=== PATIENT | male | born 1985 | race African-American/Black ===

== ENCOUNTER 2017-02-10 04:41 | Emergency (ER) | payer BC ==
[2017-02-10] MEDS ORDERED: Aspirin Low Dose CHEW TAB* 81 MG PO ONE (05:04)
[2017-02-10 05:32] LABS: ABS Basophils 0 10^3/ul (0-0.2); ABS Eosinophils 0.1 10^3/ul (0-0.6); ABS Lymphocytes 1.6 10^3/ul (1.0-4.8); ABS Monocytes 0.4 10^3/ul (0-0.8); ABS Nucleated RBC 0.01 10^3/ul; Eosinophil % 2.2 % (0-6); Hematocrit 40 % (42-52); Hemoglobin 13.7 g/dl (14.0-18.0); Lymphocyte % 30.9 % (25-47); Mean Corpuscular HGB Conc 34 g/dl (31-36); Mean Corpuscular Hemoglobin 28 pg (27-31); Mean Corpuscular Volume 81 fL (80-94); Mean Platelet Volume 8 um3 (7.4-10.4); Nucleated Red Blood Cells % 0.1; Platelet Count 237 10^3/ul (150-450); Red Blood Count 4.96 10^6/ul (4.0-5.4); Red Cell Distribution Width 13 % (10.5-15); White Blood Count 5.1 10^3/ul (3.5-10.8)
[2017-02-10 05:43] LABS: INR 0.93 (0.77-1.02)
[2017-02-10 05:48] LABS: EGFR Non-African American 96.6 (>60)
--- NOTE | 2017-02-10 06:56 | ED ---
Ja Abdi Tecjoon, scribed for Yanely Bedolla MD on 02/10/17 at 0504 . HPI Chest Pain - HPI Summary HPI Summary: This patient is a 31 year old male presenting to [facility] with a chief complaint of left-sided chest pain since 329. The pain is described as a discomfort. The pain is rated 2-3/10 in severity currently but 7/10 at onset. The pain radiates down his left arm. Symptoms aggravated by nothing. Symptoms alleviated by nothing. Patient denies SOB, diaphoresis, nausea, vomiting. Patient does not smoke, but notes that he has a FHx of cardiac disease. - History of Current Complaint Chief Complaint: EDChestPainROMI Hx Obtained From: Patient Onset/Duration: Started Hours Ago Time of Onset: 03:30 Timing: Constant Initial Severity: Moderate - 7/10 Current Severity: Mild Pain Intensity: 3 Pain Scale Used: 0-10 Numeric Chest Pain Location: Left Anterior, Left Lateral Chest Pain Radiates: Yes Chest Pain Radiates To:: Arm - left Aggravating Factor(s): Nothing Alleviating Factor(s): Nothing Associated Signs and Symptoms: Positive: Negative - SOB, diaphoresis, nausea, vomiting - Allergy/Home Medications Allergies/Adverse Reactions: Allergies Allergy/AdvReac Type Severity Reaction Status Date / Time Bee Venom Allergy Anaphylatic Verified 02/10/17 04:48 Shock PMH/Surg Hx/FS Hx/Imm Hx Previously Healthy: Yes Endocrine/Hematology History: Denies: Hx Diabetes, Hx Thyroid Disease Cardiovascular History: Denies: Hx Hypertension, Hx Pacemaker/ICD Respiratory History: Denies: Hx Asthma, Hx Chronic Obstructive Pulmonary Disease (COPD) GI History: Denies: Hx Ulcer History: Denies: Hx Renal Disease Sensory History: Denies: Hx Hearing Aid Psychiatric History: Reports: Hx Anxiety Denies: Hx Panic Disorder - Immunization History Date of Influenza Vaccine: 10/2016 Infectious Disease History: Yes Infectious Disease History: Denies: Hx Hepatitis, Hx Human Immunodeficiency Virus (HIV), Traveled Outside the [place] in Last 30 Days - Family History Known Family History: Positive: Cardiac Disease, Hypertension - Social History Occupation: Employed Full-time Alcohol Use: None Hx Substance Use: No Substance Use Type: Reports: None Hx Tobacco Use: No Smoking Status (MU): Never Smoked Tobacco Have You Smoked in the Last Year: No Review of Systems Negative: Fever, Skin Diaphoresis Positive: Chest Pain Negative: Shortness Of Breath Negative: Vomiting, Nausea All Other Systems Reviewed And Are Negative: Yes Physical Exam - Summary Physical Exam Summary: VITAL SIGNS: Reviewed. GENERAL: Patient is a well-developed and nourished male who is lying comfortable in the stretcher. Patient is not in any acute respiratory distress. HEAD AND FACE: No signs of trauma. No ecchymosis, hematomas or skull depressions. No sinus tenderness. EYES: PERRLA, EOMI x 2, No injected conjunctiva, no nystagmus. EARS: Hearing grossly intact. Ear canals and tympanic membranes are within normal limits. MOUTH: Oropharynx within normal limits. NECK: Supple, trachea is midline, no adenopathy, no JVD, no carotid bruit, no c- spine tenderness, neck with full ROM. CHEST: Symmetric, no tenderness at palpation LUNGS: Clear to auscultation bilaterally. No wheezing or crackles. CVS: Regular rate and rhythm, S1 and S2 present, no murmurs or gallops appreciated. ABDOMEN: Soft, non-tender. No signs of distention. No rebound no guarding, and no masses palpated. Bowel sounds are normal. EXTREMITIES: FROM in all major joints, no edema, no cyanosis or clubbing. NEURO: Alert and oriented x 3. No acute neurological deficits. Speech is normal and follows commands. SKIN: Dry and warm Triage Information Reviewed: Yes Vital Signs On Initial Exam: Initial Vitals Temp Pulse Resp BP Pulse Ox 97.0 F 78 16 141/82 100 02/10/17 04:43 02/10/17 04:43 02/10/17 04:43 02/10/17 04:43 02/10/17 04:43 Vital Signs Reviewed: Yes Diagnostics - Vital Signs Vital Signs Temp Pulse Resp BP Pulse Ox 02/10/17 04:43 97.0 F 78 16 141/82 100 - Laboratory Lab Results: Lab Results 02/10/17 02/10/17 02/10/17 Range/Units 05:24 05:24 05:24 WBC 5.1 (3.5-10.8) 10^3/ul RBC 4.96 (4.0-5.4) 10^6/ul Hgb 13.7 L (14.0-18.0) g/dl Hct 40 L (42-52) % MCV 81 (80-94) fL MCH 28 (27-31) pg MCHC 34 (31-36) g/dl RDW 13 (10.5-15) % Plt Count 237 (150-450) 10^3/ul MPV 8 (7.4-10.4) um3 Neut % (Auto) 58.2 (38-83) % Lymph % (Auto) 30.9 (25-47) % [place] % (Auto) 8.1 (1-9) % Eos % (Auto) 2.2 (0-6) % Baso % (Auto) 0.6 (0-2) % Absolute Neuts (auto) 3.0 (1.5-7.7) 10^3/ul Absolute Lymphs (auto) 1.6 (1.0-4.8) 10^3/ul Absolute Monos (auto) 0.4 (0-0.8) 10^3/ul Absolute Eos (auto) 0.1 (0-0.6) 10^3/ul Absolute Basos (auto) 0 (0-0.2) 10^3/ul Absolute Nucleated RBC 0.01 10^3/ul Nucleated RBC % 0.1 INR (Anticoag Therapy) 0.93 (0.77-1.02) APTT 35.2 (26.0-36.3) seconds Sodium 138 (133-145) mmol/L Potassium TNP Chloride 108 (101-111) mmol/L Carbon Dioxide 24 (22-32) mmol/L Anion Gap 6 (2-11) mmol/L BUN 12 (6-24) mg/dL Creatinine 0.91 (0.67-1.17) mg/dL Est GFR ( Amer) 124.2 (>60) Est GFR (Non-Af Amer) 96.6 (>60) BUN/Creatinine Ratio 13.2 (8-20) Glucose 116 H (70-100) mg/dL Calcium 8.7 (8.6-10.3) mg/dL Total Bilirubin 0.50 (0.2-1.0) mg/dL AST TNP ALT 32 (7-52) U/L Alkaline Phosphatase 41 (34-104) U/L Total Creatine Kinase 235 H (10-223) U/L Troponin I 0.00 (<0.04) ng/mL Total Protein 6.3 L (6.4-8.9) g/dL Albumin 3.7 (3.2-5.2) g/dL Globulin 2.6 (2-4) g/dL Albumin/Globulin Ratio 1.4 (1-3) Result Diagrams: 02/10/17 05:24 02/10/17 05:24 Lab Statement: Any lab studies that have been ordered have been reviewed, and results considered in the medical decision making process. - Radiology CXR Xray Interpretation: No Acute Changes Radiology Interpretation Completed By: ED Physician, Radiologist - EKG 045 Cardiac Rate: NL EKG Rhythm: Sinus Rhythm - 70 BPM EKG Interpretation: Normal axis. Normal interval. No ischemic changes Chest Pain Course/Dx - Course Course Of Treatment: This patient is a 31 year old male presenting to [facility] with a chief complaint of left-sided chest pain since 329. The pain is rated 2- 3/10 in severity currently but 7/10 at onset. The pain radiates down his left arm. An EKG, taken 450, reveals NSR (70 BPM) Normal axis. Normal interval. No ischemic changes. CXR reveals, per radiologist, NO ACUTE CHANGES. ED physician has reviewed this radiology report. In the ED course the patient was given aspirin. Patient to be signed out at end of shift, pending repeat troponin in 4 hours. - Diagnoses Provider Diagnoses: Chest pain Discharge - Discharge Plan Condition: Stable Disposition: OTHER Discharge Disposition Comment: Patient to be signed out to Dr Carranza, pending repeat troponin and dispo Referrals: Cassandra Ridley MD [Primary Care Provider] - The documentation as recorded by the Ja gregory Tecjoon accurately reflects the service I personally performed and the decisions made by , Yanely Bedolla MD.
--- NOTE | 2017-02-10 08:19 | RAD ---
INDICATION: Left-sided chest pain COMPARISON: None. TECHNIQUE: Single AP portable view of the chest was obtained. FINDINGS: Image quality is compromised due to the relative inferiority of a portable chest x-ray. The heart and mediastinum exhibit normal size and contour. The lungs are grossly clear. There is no evidence of a large pleural effusion. Visualized bones are normal for the patient's age. IMPRESSION: No radiographic evidence for acute cardiopulmonary abnormality on this portable chest x-ray.
[2017-02-10 10:10] VITALS: BP 122/74
--- NOTE | 2017-02-10 18:52 | ED ---
Oni Abdi Angela, scribed for Catalina Lee MD on 02/10/17 at 0746 . Progress - Progress Note Progress Note: This pt was signed out by Dr. Bedolla, pending disposition, awaiting second troponin. Pt is a 31 y/o male presenting to [facility] c/o left sided chest pain radiating to left arm since 03:30 today. Pt reports he was getting ready for work when his chest pain began. Pt denies feeling SOB with onset of chest pain. On re- evaluation, he currently denies LE swelling, LE pain, SOB, chest pain, chest pressure. Pt notes he has been evaluated for chest pain in the past and had a stress test. He was told that it was anxiety. Pt states "this didn't feel like that, it felt different." Pt is currently switching PCP from [facility] to [facility]. He states he has an upcoming appointment tomorrow with [facility]. Pt works for the [employer] and notes he has to work tomorrow at 03:30 AM. He reports he feels comfortable going back to work. He denies smoking, HTN, diabetes. Pt notes family history of cardiac disease (father), diabetes, HTN, stroke ( father). Pt's father from dementia. Pt's mother is still alive. Physical Exam: Appearance: Well-appearing, no pain distress, Well-nourished Skin: Warm, color reflects adequate perfusion Head: Normal Head/Face inspection Eyes: Conjunctiva clear ENT: Normal inspection Neck: Supple Respiratory: Lungs clear, Normal breath sounds, no respiratory distress Cardio: RRR, No murmur, pulses normal, brisk capillary refill Musculoskeletal: Strength Intact/ ROM intact Neuro: Alert, muscle tone normal, facial symmetry, speech normal, sensory/motor intact Psychological: Normal Vital Signs at 07:43 Blood pressure: 127/73 Pulse: 75 Respiration: 20 O2 Sat: 100 Re-Evaluation - Re-Evaluation First Eval Re-Evaluation Time: 07:43 Change: Improved Comment: Pt currently denies chest pain and chest pressure. Pt reports his left arm pain has now subsided within the last 15 minutes. Pt states he received aspirin while in the ED. Third Eval Re-Evaluation Time: 10:03 Change: Improved Comment: I reviewed the second troponin with the pt. Pt reports he is pain free. I also discussed discharge instructions with the pt. Course/Dx - Course Course Of Treatment: Pt medications reviewed this visit. I reviewed the second troponin with the pt. Pt reports he is pain free. I discussed discharge instructions with the pt. Pt understands and is agreeable with the plan. - Diagnoses Provider Diagnoses: Chest pain, Elevated BP without diagnosis of hypertension The documentation as recorded by the Oni gregory Angela accurately reflects the service I personally performed and the decisions made by me, Catalina Lee MD.
== END 2017-02-10 10:12 | disposition home or self-care (01) ==
LOC: ED 04:41
DX: R07.9 Chest pain, unspecified (principal); R03.0 Elevated blood-pressure reading, without diagnosis of hypertension
CPT/HCPCS: 36415; 71010; 80053; 82550; 84484; 85025; 85610; 85730; 93005; 99282; A9270-GY